=== PATIENT | female | born 1990 | race Two or more races ===

== ENCOUNTER 2022-02-11 13:37 | Outpatient (CLI) | payer MEDICAID, SELFPAY ==
[2022-02-11 14:53] LABS: HIV 1/2 Ab P24 Ag Result Negative (Negative)
== END 2022-02-11 13:38 | disposition home or self-care (01) ==
PROVIDERS: Visit Provider Obstetrics & Gynecology
DX: O36.0130 Maternal care for anti-D [Rh] antibodies, third trimester, not applicable or unspecified (principal); Z3A.00 Weeks of gestation of pregnancy not specified
CPT/HCPCS: 36415; 85461; 86703; 86850; 86900; 86901; G0432

== ENCOUNTER 2022-03-02 03:10 | Observation (INO) | payer MEDICARE, MEDICAID, SELFPAY ==
[2022-03-02 03:20] VITALS: BP 115/74; PULSE 89
[2022-03-02 03:53] LABS: Appearance Urine Clear (Clear); Bilirubin Urine Negative (Negative); Blood Urine Negative (Negative); Color Urine Yellow (Yellow); Glucose Urine UA Negative (Negative); Ketones Urine Negative (Negative); Leukocyte Esterase Ur Trace LEU/UL (Negative); Nitrate Urine Negative (Negative); Protein Urine Negative (Negative); Specific Grav Ur 1.015 (1.001-1.035); Urobilinogen Urine 0.2 mg/dL (<2.0)
[2022-03-02 04:02] LABS: Add Urine Microscopic? YES; Bacteria Urine Trace /hpf; Mucus Urine Rare /lpf; RBC Urine 0-2 /hpf (0-2); Squamous Epithelial Cell Urine Occasional /hpf (Few); WBC Urine 0-3 /hpf
--- NOTE | 2022-03-23 18:35 | PM.OBTRLD ---
OB - Triage/Final Diagnosis Visit Information Comments/Additional reasons for admission: I have assessed the risk for this patient, Jacquelyn Deras, and determined that she would benefit from observation care. Evaluation Laboratory results: Laboratory Tests 03/02/22 03:38 Urine Color Yellow Urine Appearance Clear Urine pH 7.0 Ur Specific [place] 1.015 Urine Protein Negative Urine Glucose (UA) Negative Urine Ketones Negative Ur Blood (Man) Negative Urine Nitrate Negative Urine Bilirubin Negative Urine Urobilinogen 0.2 Leukocyte Esterase Rfl Trace H Urine RBC 0-2 Urine WBC 0-3 Ur Squamous Epith Cells Occasional Urine Bacteria Trace Urine Mucus Rare Final Diagnosis (1) Pelvic pain: Code(s): R10.2 - Pelvic and perineal pain Status: Acute
== END 2022-03-02 04:19 | disposition home or self-care (01) ==
PROVIDERS: Admitting Provider Obstetrics & Gynecology; PCP Internal Medicine; Visit Provider Obstetrics & Gynecology
DX: O26.893 Other specified pregnancy related conditions, third trimester (principal); R10.2 Pelvic and perineal pain; Z3A.31 31 weeks gestation of pregnancy
CPT/HCPCS: 59025; 81001; G0378; G0379

== ENCOUNTER 2022-04-18 16:17 | Observation (INO) | payer MEDICARE, MEDICAID, SELFPAY ==
[2022-04-18 17:49] VITALS: BP 136/87; PULSE 82; BMI 30.4
--- NOTE | 2022-04-18 17:50 | OBADM ---
This patient, Jacquelyn Deras, admitted to the OB room Labor/Delivery/Recovery 106 for observation. Patient/family oriented to hospital policies and general routines including ID bracelet, bed and alarms, visiting hours, pain management, procedures, bathroom and other care routines, personal items, smoking policy, room service/diet, and visiting hours. Patient/Family are encouraged to report perceived risks to care and to ask questions if they do not understand what they are told or what they should do.
--- NOTE | 2022-05-13 08:32 | PM.OBTRLD ---
OB - Triage/Final Diagnosis Visit Information Comments/Additional reasons for admission: I have assessed the risk for this patient, Jacquelyn Deras, and determined that she would benefit from observation care. Final Diagnosis (1) Vaginal discharge during in third trimester: Code(s): O26.893 - Other specified related conditions, third trimester; N89.8 - Other specified noninflammatory disorders of vagina Status: Acute
== END 2022-04-18 18:05 | disposition home or self-care (01) ==
PROVIDERS: Admitting Provider Obstetrics & Gynecology; PCP Internal Medicine; Visit Provider Obstetrics & Gynecology
DX: O26.893 Other specified pregnancy related conditions, third trimester (principal); N89.8 Other specified noninflammatory disorders of vagina; Z3A.38 38 weeks gestation of pregnancy
CPT/HCPCS: 59025; G0378; G0379

== ENCOUNTER 2022-04-22 10:34 | Inpatient (IN) | payer MEDICARE, MEDICAID, SELFPAY ==
--- NOTE | 2022-04-01 13:20 | PC.NURSE ---
1515--Talked with Dr Lei from Anesthesia--about patient history of pneumocephalus--states needs to see the records from [facility] anesthesia and Patient's neurosurgeon before can determine course of action.
--- NOTE | 2022-04-01 14:08 | PC.NURSE ---
1155 Dr Lei said he does not recommend patient delivery at [facility] with her health history and states pentoxifylline not be taken for 5-7 days prior to delivery---Dr Montero office called --left message -she should talk with Dr Lei about this patient. left message that patient is to given Dr Montero her records from [facility] [place] [facility] and anesthesia so the office can faxed then to Anesthesia
[2022-04-22] VITALS (96 sets, daily range): BP systolic 105–150; BP diastolic 48–136; PULSE 68–93; RESP 18; TEMP 36.6–36.9; O2SAT 93–100; BMI 31.6
--- NOTE | 2022-04-22 10:34 | LDADM ---
This patient, Jacquelyn Deras, was admitted to Labor/Delivery/Recovery 105 on 04/22/22 at 10:34. Plans for labor, pain management and were discussed with patient. Patient/family oriented to hospital policies and general routines including ID bracelet, bed and alarms, visiting hours, pain management, procedures, bathroom and other care routines, personal items, smoking policy, room service/diet and guest tray routines, security routines, and visiting hours. Patient/Family are encouraged to report perceived risks to care and to ask questions if they do not understand what they are told or what they should do. See OBIX for further documentation.
[2022-04-22 11:26] LABS: Basophils Percent Auto 0.1 % (0.2-1.2); Eosinophils Absolute Auto 0.2 K/mm3 (0-0.3); Eosinophils Percent Auto 2.1 % (0-4.4); Hematocrit 33.1 % (37.0-47.0); Hemoglobin 10.7 g/dL (12.0-15.0); Immature Granulocyte Absolute 0.13 K/mm3 (0.00-0.031); Immature Granulocyte Percent A 1.5 % (0-0.5); Lymphocytes Absolute Auto 1.21 K/mm3 (0.9-3.2); Lymphocytes Percent Auto 13.6 % (18.3-44.2); Mean Corpuscular HGB Conc 32.3 g/dl (32-36); Mean Corpuscular Hemoglobin 27.2 pg (26-34); Mean Corpuscular Volume 84.2 fl (80-100); Mean Platelet Volume 8.7 fl (7.4-10.4); Monocytes Absolute Auto 0.7 K/mm3 (0.1-0.6); Monocytes Percent Auto 8.3 % (2.6-8.5); Neutrophils Absolute Auto 6.6 K/mm3 (1.3-6.7); Neutrophils Percent Auto 74.4 % (45.5-73.1); Platelet Count Result 284 k/mm3 (150-375); Red Blood Count 3.93 M/mm3 (4.2-5.4); Red Cell Distribution Width 15.4 % (11.5-14.5); White Blood Count 8.9 K/mm3 (4.5-10.0)
[2022-04-22] MEDS: LACTATED RINGERS 1,000 ML 125 ML IV CONT ×2 (11:38→14:01)
[2022-04-22] MEDS: OXYTOCIN 30 UNITS/NS 500 ML 30 UNITS/500 ML BAG IV CONT (11:38)
--- NOTE | 2022-04-22 12:14 | PM.IMHP ---
H&P: HPI History of Present Illness Date/Time: 04/22/22 12:14 Chief Complaint: induction of labor Narrative: Jacquelyn is a 31yo at 38.4 for IOL due to decelerations on NST in office. 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 on low dose steroids currently. Had pneumocephalus with first epidural, has had anesthesia consult this . Review of Systems Review of Systems: All systems reviewed & are unremarkable except as noted in HPI and below PMFSH Family History Family History (Updated 04/01/22 @ 12:44 by Sandeep Lay RN) Mother Rheumatoid arthritis Anemia Heart murmur Asthma Father Hypertension Thyroid disease Grandparent Asthma Grandparent Arrhythmia Asthma Grandparent Type 2 diabetes mellitus S/P arterial stent Asthma Social History Social History Smoking status: Never smoker Second hand tobacco smoke exposure: Yes Substance use: never Lack of Transportation: No Lack of Food: Never True Current Housing: I Have Housing Concerned About Future Housing: No Difficulty Paying Gas/Electric Bills: No Difficulty Paying for Meds: No Currently Unemployed: No Education: Trade/Vocational Certificate Difficulty w/ Childcare or Family Care: No Spiritual care concerns: No Meds Home Medications and Allergies Home Medications Medication Instructions Recorded Confirmed Type aspirin 81 mg tablet,delayed 81 mg PO DAILY 04/01/22 04/01/22 History release (Dereck Low Dose Aspirin) azathioprine 50 mg tablet 150 mg PO DAILY 04/01/22 04/01/22 History buspirone 15 mg tablet 15 mg PO TID 04/01/22 04/01/22 History celecoxib 200 mg capsule 200 mg PO DAILY 04/01/22 04/01/22 History clopidogrel 75 mg tablet 75 mg PO DAILY 04/01/22 04/01/22 History cyclobenzaprine 10 mg tablet 10 mg PO TID PRN Muscle Spasm 04/01/22 04/01/22 History ferrous sulfate 325 mg (65 mg 325 mg PO DAILY 04/01/22 04/01/22 History iron) tablet gabapentin 800 mg tablet 800 mg PO QID 04/01/22 04/01/22 History hydroxychloroquine 200 mg tablet 200 mg PO BID 04/01/22 04/01/22 History pentoxifylline 400 mg 400 mg PO TID 04/01/22 04/01/22 History tablet,extended release prednisone 5 mg tablet 5 mg PO DIRECTED 04/01/22 04/01/22 History Allergies Allergy/AdvReac Type Severity Reaction Status Date / Time shavonne Allergy Difficulty Verified 04/01/22 12:27 Breathing Penicillins Allergy Difficulty Verified 04/01/22 12:27 Breathing pomegranate Allergy Difficulty Verified 04/01/22 12:27 Breathing Vital Signs Vital Signs - 24 hr 04/22/22 10:58 04/22/22 11:29 04/22/22 11:31 Temperature 98.3 F Pulse Rate 85 79 Blood Pressure 131/85 132/83 Oxygen Delivery 04/22/22 12:01 04/22/22 11:00 Temperature Pulse Rate 78 Blood Pressure 124/79 Oxygen Delivery Room Air Exam Const: General: no acute distress Resp: Effort & Inspection: normal respiratory effort Auscultation: clear to auscultation bilaterally Cardio: Rate: regular rate Rhythm: regular rhythm GI: GI Palp: Yes Soft to palpation Extrem: General: normal to inspection H&P: Results Labs Labs: Short CBC 04/22/22 Range/Units 10:50 WBC 8.9 (4.5-10.0) K/mm3 Hgb 10.7 L (12.0-15.0) g/dL Hct 33.1 L (37.0-47.0) % Plt Count 284 (150-375) k/mm3 Assessment and Plan Assessment and plan (1) Rheumatoid arthritis: Code(s): M06.9 - Rheumatoid arthritis, unspecified Status: Acute (2) History of left hip replacement: Code(s): Z96.642 - Presence of left artificial hip joint Status: Acute (3) Encounter for induction of labor: Code(s): Z34.90 - Encounter for supervision of normal , unspecified, unspecified trimester Status: Acute (4) heart deceleration: Status: Acute Plan FHT category 1 currently, but had small spontaneous decels in off
[2022-04-22 12:15] LABS: HIV 1/2 Ab P24 Ag Result Negative (Negative)
[2022-04-22] MEDS: HYDROCORTISONE SODIUM SUCCINATE 100 MG/2 ML VIAL 25 MG IV PUSH (13:24)
--- NOTE | 2022-04-22 14:02 | WPDANESEPP ---
Anes - Eval Pre Procedure Procedure: Labor Epidural Date/Time: 04/22/22 14:02 Surgeon: Kylah Preop Diagnosis: Labor Pain Pre Op Diagnosis: IOL Patient Data Age: 31 Gender: F Height: 1.73 m Weight: 94.5 kg Last Vital Signs Temp 36.9 C 04/22/22 13:59 Pulse 79 04/22/22 14:01 BP 126/75 04/22/22 14:01 Pulse Ox 100 04/22/22 13:58 O2 Del Method Room Air 04/22/22 11:00 Allergies Allergy/AdvReac Type Severity Reaction Status Date / Time shavonne Allergy Difficulty Verified 04/01/22 12:27 Breathing Penicillins Allergy Difficulty Verified 04/01/22 12:27 Breathing pomegranate Allergy Difficulty Verified 04/01/22 12:27 Breathing Home Medications Medication Instructions Recorded Confirmed Type aspirin 81 mg tablet,delayed 81 mg PO DAILY 04/01/22 04/01/22 History release (Dereck Low Dose Aspirin) azathioprine 50 mg tablet 150 mg PO DAILY 04/01/22 04/01/22 History buspirone 15 mg tablet 15 mg PO TID 04/01/22 04/01/22 History celecoxib 200 mg capsule 200 mg PO DAILY 04/01/22 04/01/22 History clopidogrel 75 mg tablet 75 mg PO DAILY 04/01/22 04/01/22 History cyclobenzaprine 10 mg tablet 10 mg PO TID PRN Muscle Spasm 04/01/22 04/01/22 History ferrous sulfate 325 mg (65 mg 325 mg PO DAILY 04/01/22 04/01/22 History iron) tablet gabapentin 800 mg tablet 800 mg PO QID 04/01/22 04/01/22 History hydroxychloroquine 200 mg tablet 200 mg PO BID 04/01/22 04/01/22 History pentoxifylline 400 mg 400 mg PO TID 04/01/22 04/01/22 History tablet,extended release prednisone 5 mg tablet 5 mg PO DIRECTED 04/01/22 04/01/22 History Laboratory Tests 04/22/22 04/22/22 04/22/22 10:50 10:50 10:50 WBC 8.9 K/mm3 K/mm3 (4.5-10.0) RBC 3.93 M/mm3 L M/mm3 (4.2-5.4) Hgb 10.7 g/dL L g/dL (12.0-15.0) Hct 33.1 % L % (37.0-47.0) MCV 84.2 fl fl (80-100) MCH 27.2 pg pg (26-34) MCHC 32.3 g/dl g/dl (32-36) RDW 15.4 % H % (11.5-14.5) Plt Count 284 k/mm3 k/mm3 (150-375) MPV 8.7 fl fl (7.4-10.4) Immature Gran % (Auto) 1.5 % H % (0-0.5) Neut % (Auto) 74.4 % H % (45.5-73.1) Lymph % (Auto) 13.6 % L % (18.3-44.2) [place] % (Auto) 8.3 % % (2.6-8.5) Eos % (Auto) 2.1 % % (0-4.4) Baso % (Auto) 0.1 % L % (0.2-1.2) Lymph # (Auto) 1.21 K/mm3 K/mm3 (0.9-3.2) [place] # (Auto) 0.7 K/mm3 H K/mm3 (0.1-0.6) Eos # (Auto) 0.2 K/mm3 K/mm3 (0-0.3) Baso # (Auto) 0.0 K/mm3 K/mm3 (0.0-0.1) Abs Immat Gran (auto) 0.13 K/mm3 H K/mm3 (0.00-0.031) Absolute Neuts (auto) 6.6 K/mm3 K/mm3 (1.3-6.7) Absolute Nucleated RBC 0.0 K/mm3 K/mm3 (0.0-0.012) Nucleated RBC % 0.0 % % (0.0-0.2) RPR Pending HIV 1&2 Ab/P24 Ag 4thGn Negative (Negative) Blood Type Antibody Screen 04/22/22 10:50 WBC RBC Hgb Hct MCV MCH MCHC RDW Plt Count MPV Immature Gran % (Auto) Neut % (Auto) Lymph % (Auto) Fisher % (Auto) Eos % (Auto) Baso % (Auto) Lymph # (Auto) [place] # (Auto) Eos # (Auto) Baso # (Auto) Abs Immat Gran (auto) Absolute Neuts (auto) Absolute Nucleated RBC Nucleated RBC % RPR HIV 1&2 Ab/P24 Ag 4thGn Blood Type B Positive Antibody Screen Negative : gestational age (G10. P2, AYAH 05/02/22) Patient hx anesthesia problems: none Family hx anesthesia problems: none Results Review: All pre-operative results and documents have been reviewed as part of the pre-operative evaluation. [facility] Family History Family History Mother Rheumatoid arthritis Anemia Heart murmur Asthma Father Hyper
--- NOTE | 2022-04-22 18:00 | PM.OBPRVD ---
OB - Delivery Note Procedure Delivery date: 04/22/22 Procedure: Events: Other (polyarteritis and RA) Induction method: AROM and Per Pitocin Protocol Delivery monitor: External FHT and External Uterine Route of delivery: Laceration Description: Perineal - 2nd Degree Delivery repair: vicryl Quantitative Blood Loss (ml): 110 Anesthesia type: Epidural Disposition: Floor Narrative: With adequate expulsive efforts by the mother, the baby's head was delivered OA. The baby's anterior shoulder was delivered under the pubic symphysis without difficulty. The posterior shoulder and the rest of the baby delivered without difficulty. The was placed on the mothers chest and suctioned and stimulated. The cord was clamped and cut after 30 seconds. Mother and baby both stable. Baby Date of : 04/22/22 Time of : 17:35 Weeks of gestation at delivery: 39 gender: Male Weight (pounds): 8 Weight (ounces): 7 presentation: vertex Placenta delivery description: Spontaneous Cord Vessel Description: 3 Vessels, Nuchal Cord and Delayed Cord Clamping score one minute: 8 score five minutes: 9
[2022-04-22] MEDS: OXYTOCIN 30 UNITS/NS 500 ML 30 UNITS/500 ML BAG 125 UNITS IV CONT (18:21)
--- NOTE | 2022-04-22 20:32 | OBPPTRN ---
Patient transferred to post room #290 via W/C. Support person present. Oriented to unit, room, information board, rooming in, admission packet and security measures. Patient verbalizes understanding.
[2022-04-22] MEDS: GABAPENTIN 400 MG CAPSULE 800 MG PO (20:50)
[2022-04-23 00:55] VITALS: BP 110/70; PULSE 86; RESP 18; TEMP 36.8
[2022-04-23] MEDS: HYDROCORTISONE SODIUM SUCCINATE 100 MG/2 ML VIAL 25 MG IV PUSH (00:55)
[2022-04-23 04:00] VITALS: BP 114/82; PULSE 62; RESP 16; TEMP 36.4
[2022-04-23 05:36] LABS: Hematocrit 33.9 % (37.0-47.0); Hemoglobin 10.6 g/dL (12.0-15.0)
[2022-04-23 07:45] VITALS: BP 109/74; PULSE 73; RESP 16; TEMP 36.7; O2SAT 98
--- NOTE | 2022-04-23 07:50 | P.PNOB_ITS ---
OB - PN: Subj Subjective Date/time seen: 04/23/22 07:50 Patient comments: no complaints and pain well controlled baby status: doing well and nursing well [place] feeding status: exclusively breast feeding OB - PN: Obj Data Labs 04/23/22 04:07 Labs: Laboratory Results - last 24 hr 04/22/22 04/22/22 04/22/22 10:50 10:50 10:50 WBC 8.9 RBC 3.93 L Hgb 10.7 L Hct 33.1 L MCV 84.2 MCH 27.2 MCHC 32.3 RDW 15.4 H Plt Count 284 MPV 8.7 Immature Gran % (Auto) 1.5 H Neut % (Auto) 74.4 H Lymph % (Auto) 13.6 L [place] % (Auto) 8.3 Eos % (Auto) 2.1 Baso % (Auto) 0.1 L Lymph # (Auto) 1.21 [place] # (Auto) 0.7 H Eos # (Auto) 0.2 Baso # (Auto) 0.0 Abs Immat Gran (auto) 0.13 H Absolute Neuts (auto) 6.6 Absolute Nucleated RBC 0.0 Nucleated RBC % 0.0 HIV 1&2 Ab/P24 Ag 4thGn Negative Blood Type B Positive Antibody Screen Negative 04/23/22 04:07 WBC RBC Hgb 10.6 L Hct 33.9 L MCV MCH MCHC RDW Plt Count MPV Immature Gran % (Auto) Neut % (Auto) Lymph % (Auto) [place] % (Auto) Eos % (Auto) Baso % (Auto) Lymph # (Auto) [place] # (Auto) Eos # (Auto) Baso # (Auto) Abs Immat Gran (auto) Absolute Neuts (auto) Absolute Nucleated RBC Nucleated RBC % HIV 1&2 Ab/P24 Ag 4thGn Blood Type Antibody Screen OB - PN A/P Plan day: 1 Plan: routine care Comments: circumcision done home tomorrow Time Spent With Patient Time: Total time spent is greater than 50% in coordination of care (as documented) at patient's floor/unit and/or counseling patient: Time with patient: less than 15 minutes Exam Narrative: NAD abdomen soft, nontender, fundus firm below the umbilicus Extremities nontender, 1+ edema
[2022-04-23] MEDS: azaTHIOprine 50 MG TABLET 150 MG PO (08:23)
[2022-04-23] MEDS: MULTIVIT/MIN/PREN/FOL AC/IRON TABLET 1 TAB PO (08:23)
[2022-04-23] MEDS: busPIRone HCL 5 MG TABLET 15 MG PO ×3 (08:23→16:16)
[2022-04-23] MEDS: GABAPENTIN 400 MG CAPSULE 800 MG PO ×4 (08:23→20:26)
[2022-04-23] MEDS: DOCUSATE SODIUM 100 MG CAPSULE PO ×2 (08:23→16:16)
[2022-04-23] MEDS: HYDROXYCHLOROQUINE SULFATE 200 MG TABLET PO ×2 (08:24→16:16)
[2022-04-23 11:58] VITALS: BP 125/69; PULSE 88; RESP 16; TEMP 37.3; O2SAT 88
[2022-04-23 12:38] LABS: Rapid Plasma Reagin Non-Reactive (NonReactive)
--- NOTE | 2022-04-23 13:38 | PC.NURSE ---
[id number] Introductions were made, Mother demonstrating that she is able to independently latch with appropriate positioning/alignment. She denies any nipple discomfort with exception to the beginning of the feeding and is responsively . is currently meeting outcomes for weight, output, jaundice and feeding frequencies of 8-12 times in 24 hours. Mother declines any additional assistance/education at this time. Mother is encouraged to call for assistance if her infant doesn?t latch or there is discomfort with latching. Mother voiced understanding of information shared and the mom reminded of the mom/baby guide for an additional resource. Reported to the primary RN.
--- NOTE | 2022-04-23 13:58 | WPDANLDPN2 ---
Anes-Prog Note L&D Date/Time: 04/23/22 13:58 Neuro status: Neuro function grossly intact. Vital Signs: Last Vital Signs Temp 37.3 C 04/23/22 11:58 Pulse 88 04/23/22 11:58 Resp 16 04/23/22 11:58 BP 125/69 04/23/22 11:58 Pulse Ox 88 L 04/23/22 11:58 O2 Del Method Room Air 04/23/22 08:20 Pain score (VAS): 1 I/O: Intake & Output 04/22/22 04/23/22 04/23/22 23:59 07:59 15:59 Intake Total 500 Output Total 210 Balance 290 Patient feedback: Patient satisfied with anesthetic care.
--- NOTE | 2022-04-23 14:31 | PC.NURSE ---
[id number] pt requested consult related to nipple was misshaped after the . was undressed and placed skin to skin after his bath. Feeding cues were visualized and infant was placed in the football position with mother sandwiching her breast to assist with a deeper latch bringing him close into the side of mother's breast to facilitate latching with a tight lingual frenulum. Mother denies pain with latch and infant has good rocking motion with intermittent suck/swallow ratios. Mother voiced that she would call for assistance with pumping when she was ready. The parents want to use a pump so they can take turns feeding the baby. Risks and benefits were discussed concerning effectively, pumping, milk production, preventing an oversupply and protecting from infection. Mother was encouraged to call for assistance if her infant doesn't wake to breastfeed or there's pain with latching. Mother voiced understanding of the information. Reported to the Primary RN.
[2022-04-23 15:55] VITALS: BP 122/77; PULSE 70; RESP 18; TEMP 36.7; O2SAT 70
[2022-04-23] MEDS: IBUPROFEN 600 MG TABLET PO (16:17)
[2022-04-23 19:25] VITALS: BP 123/76; PULSE 79; RESP 16; TEMP 36.7
[2022-04-24 07:25] VITALS: BP 116/69; PULSE 81; RESP 16; TEMP 36.9; O2SAT 99
--- NOTE | 2022-04-24 07:53 | PM.OBPNVD ---
OB - PN: Subj Subjective Date/time seen: 04/24/22 07:53 Patient comments: no complaints baby status: doing well OB - PN: Obj Data Labs 04/23/22 04:07 Labs: Laboratory Results - last 24 hr 04/22/22 10:50 RPR Non-reactive OB - PN A/P Plan day: 2 Plan: routine care and discharge home (F/U in 4 weeks) Time Spent With Patient Time: Total time spent is greater than 50% in coordination of care (as documented) at patient's floor/unit and/or counseling patient: Time with patient: less than 15 minutes Review of Systems Review of Systems: All systems reviewed & are unremarkable except as noted in HPI and below Exam Narrative: Fundus firm and vaginal flow controlled. No lower ext redness, warmth, or edema. Negative homans. Const: General: comfortable Chest: Breast/axilla inspection: normal inspection of the breasts Resp: Effort & Inspection: normal respiratory effort Cardio: Rate: regular rate GI: GI Palp: Yes Soft to palpation Psych: Appearance: grossly normal Affect: normal affect Attitude: cooperative Thought content: Yes Normal thought content present Judgement: Good judgement present (Psych)
[2022-04-24] MEDS: DOCUSATE SODIUM 100 MG CAPSULE PO (08:17)
[2022-04-24] MEDS: MULTIVIT/MIN/PREN/FOL AC/IRON TABLET 1 TAB PO (08:17)
[2022-04-24] MEDS: predniSONE 5 MG TABLET PO (08:18)
[2022-04-24] MEDS: HYDROXYCHLOROQUINE SULFATE 200 MG TABLET PO (08:19)
[2022-04-24] MEDS: busPIRone HCL 5 MG TABLET 15 MG PO (08:19)
[2022-04-24] MEDS: azaTHIOprine 50 MG TABLET 150 MG PO (08:20)
[2022-04-24] MEDS: GABAPENTIN 400 MG CAPSULE 800 MG PO (08:20)
--- NOTE | 2022-04-24 09:37 | PC.NURSE ---
Roberto Guzmán RN, has looked over and approved patient's charting that Lucie Thompson, Student RN has completed.
--- NOTE | 2022-04-24 09:38 | PC.NURSE ---
Patient to view the discharge video Mother & Baby Care, The First Two Weeks online. Patient was given the opportunity and encouraged to ask questions. Patient verbalized understanding of information shared and has been given the mother/baby guide for home reference.
--- NOTE | 2022-04-24 16:19 | PC.NURSE ---
[id number] Mother led the conversation with her experience and plan to feed her so far and her ability to independently latch optimally without discomfort. Reminded parents to use good handwashing technique to prevent infection. Mother is feeding appropriately for growth of and understands stimulating to eat if needed. Infant has had adequate feedings in the last 24 hours meets the outcomes for weight, output and jaundice at this time. Mother states she is confident to continue effectively her infant at home, when to call for assistance and denies any additional assistance or education at this time. Reinforced understanding of milk production, transition of milk, signs of adequate intake, transition of stool, prevention/relief of engorgement, responsive watching for feeding cues, the different methods of stimulating infant to breastfeed 2-3 hours after the start of the last feeding, community resources, medication information reviewed per [employer] and when to call a provider using the resource of the mom and baby guide/[facility] website. Mother voiced understanding of the education shared. Primary RN is present for discharging patient to home.
[2022-04-25 10:41] VITALS: BP 124/74; PULSE 82; RESP 20; TEMP 37.4; O2SAT 99
--- NOTE | 2022-05-15 08:24 | PM.OBDSVD ---
DS: Admitting Diagnosis Discharge Date 04/24/22 Admitting Diagnosis Labor OB - DS: Summary OB Procedures : None OB Procedures Intrapartum: Spontaneous Vag Delivery OB Procedures: : None Time Spent with Patient Time attestation: Total time spent providing and/or coordinating discharge services: Discharge Plan Discharge Attending physician on discharge: Nola Montero Consulting providers: Adrienne Patel ; Marina Gillette ; Chasity Ryan Discharging Clinician: Adrienne Patel Patient Disposition: Home, Self-Care Activity: pelvic rest Diet: as tolerated Discharge Instructions: Education: Mom and Baby Guide Given to: Mother Follow-Up: Call your delivering provider's office for an appointment to be seen in: 4 Weeks Mom and baby should come to the [facility] for the follow-up appointment. Appointment Date/Time: April 25, 2022 at 10:00 am What to expect at your follow-up visit: Call [phone] if you are unable to keep your appointment time. BREAST CARE: * Wear a snug supportive bra. * For engorgement discomfort: Breast Feeding: * Apply warm moist washcloths * Express milk as needed to relieve engorgement * Wear loose clothing Bottle Feeding: * May apply ice packs * For sore nipples: * Identify correct latch-on * Apply warm moist washcloths before and after nursing * Air dry nipples after nursing * May apply Lansinoh cream to nipples EPISIOTOMY/PERINEAL CARE: * Until bleeding stops, use your kamla bottle after urinating * Change your pad frequently throughout the day * You may take sitz baths several times a day (fill your bathtub with warm water and soak for 20 minutes.) Do NOT bathe in the water * No tub baths until seen by your physician - You may shower ACTIVITY: * Rest as much as possible. * Do not exercise or lift anything heavier than your baby (such as laundry or other children.) * Avoid stairs or driving as much as possible. * Do not put anything into the vagina. No douching, tampons, or sexual activity until seen by physician. NOTIFY PHYSICIAN IF YOU HAVE ANY QUESTIONS OR IF ANY OF THE FOLLOWING SYMPTOMS OCCUR: * If your episiotomy or incision becomes red, swollen, or more painful than what you have experienced in the hospital. * If your vaginal bleeding becomes foul smelling. * If your vaginal bleeding becomes more heavy than a period or if your bleeding changes from pink to bright red. However, you may pass an occasional walnut-sized clot once or twice for the first week . * If you experience a sharp, shooting pain in you calves. * If you discover a hard, reddened area on your breast or if you experience flu-like symptoms. DIET: * Eat regular, well-balanced meals. * Drink plenty of fluids daily. If , drink to thirst. Patient Instructions: Antibiotic Form Stand Alone Forms: General Discharge Information Follow-up/Referrals: Nola Montero MD [Physician] - Discharge Medications: Continued celecoxib 200 mg Capsule 200 mg PO DAILY cyclobenzaprine 10 mg Tablet 10 mg PO TID PRN (Reason: Muscle Spasm) prednisone 5 mg Tablet 5 mg PO DIRECTED Rx Instructions: see taper instructions azathioprine 50 mg Tablet 150 mg PO DAILY clopidogrel 75 mg Tablet 75 mg PO DAILY aspirin [Dereck Low Dose Aspirin] 81 mg Tablet,Delayed Release (Dr/Ec) 81 mg PO DAILY pentoxifylline 400 mg Tablet Extended Release 400 mg PO TID Rx Instructions: must administer with a meal/food gabapentin 800 mg Tablet 800 mg PO QID ferrous sulfate 325 mg (65 mg iron) Tablet 325 mg PO DAILY hydroxychloroquine 200 mg Tablet 200 mg PO BID buspirone 15 mg Tablet 15 mg PO TID Date of admission: 04/22/22 10:34 Primary Care Provider: Amy,Meet Menezes
== END 2022-04-24 10:22 | disposition home or self-care (01) | DRG 807 ==
LOC: ANHLDR 11:11 → ANHOB2 20:33
PROVIDERS: Admitting Provider Obstetrics & Gynecology; PCP Internal Medicine; Visit Provider Obstetrics & Gynecology
DX: O99.892 Other specified diseases and conditions complicating childbirth (principal); Z37.0 Single live birth; Z3A.39 39 weeks gestation of pregnancy; M06.9 Rheumatoid arthritis, unspecified; I77.6 Arteritis, unspecified; O70.1 Second degree perineal laceration during delivery; O69.81X0 Labor and delivery complicated by cord around neck, without compression, not applicable or unspecified; O36.8330 Maternal care for abnormalities of the fetal heart rate or rhythm, third trimester, not applicable or unspecified; Z96.642 Presence of left artificial hip joint
CPT/HCPCS: 36415; 85014; 85018; 85025; 86592; 86703; 86850; 86900; 86901; A9270; G0432; J1720; J2590; J2795; J7120; J7512